=== PATIENT | female | born 1955 | race Caucasian/White ===

== ENCOUNTER 2018-10-18 08:39 | Emergency (ER) | payer MEDICARE ==
[2018-10-18] MEDS ORDERED: Mag-Al 1200 mg/1200 mg/30 ML UDCUP ONE (09:09)
[2018-10-18] MEDS ORDERED: Pantoprazole 40 MG VIAL ONE (09:09)
[2018-10-18] MEDS ORDERED: Lidocaine Viscous Sol 2% 15 ml UD Cup ONE (09:09)
[2018-10-18 09:31] LABS: #Basophils 0.1 thou/uL (0.0-0.2); #Eosinphils 0.2 thou/uL (0.0-0.7); #Lymphocytes 2.3 thou/uL (1.20-3.40); #Monocytes 0.9 thou/uL (0.11-0.59); #Neutrophils 6.6 thou/uL (1.40-6.50); %Basophils 0.8 % (0.0-1.0); %Lymphocytes 22.5 % (21.0-51.0); %Monocytes 9.2 % (0.0-10.0); %Neutrophils 65.5 % (42.0-75.0); Hemoglobin 13.2 g/dL (12.0-16.0); Mean Corpuscular HGB CONC 33.4 g/dL (32.0-36.0); Mean Corpuscular Hemoglobin 30.8 pg (27.0-31.0); Mean Corpuscular Volume 92.2 fL (78.0-98.0); Mean Platelet Volume 7.4 fL (7.4-10.4); Platelet Count 468 thou/uL (130-400); RBC Distribution Width 11.5 % (11.5-14.5)
[2018-10-18 09:45] LABS: PTT 39.8 SEC (22.9-36.1); Prothrombin Time 13.7 SEC (12.0-14.7)
[2018-10-18] MEDS ORDERED: Fentanyl 100 MCG/2 ML VIAL ONE (09:48)
[2018-10-18 09:57] LABS: ALT (SGPT) 21 U/L (8-55); AST (SGOT) 19 U/L (5-34); Albumin 4.4 g/dL (3.4-4.8); Alkaline Phosphatase 70 U/L (40-150); Anion Gap 14 mmol/L (10-20); BUN (Urea Nitrogen) 15 mg/dL (9.8-20.1); Bilirubin, Total 0.7 mg/dL (0.2-1.2); Calc. Creatinine Clearance 0 mL/min (70-130); Calcium 10.2 mg/dL (7.8-10.44); Carbon Dioxide 26 mmol/L (23-31); Chloride 103 mmol/L (98-107); Estimated GFR-MDRD 73; Globulin 3.7 g/dL (2.4-3.5); Glucose 95 mg/dL (80-115); Lipase 17 U/L (8-78); Potassium 4.1 mmol/L (3.5-5.1); Protein, Total 8.1 g/dL (6.0-8.3); Sodium 139 mmol/L (136-145)
--- NOTE | 2018-10-18 10:03 | RAD ---
PORTABLE AP CHEST XRAY: DATE: 10/18/2018. HISTORY: Chest pain, abdominal pain. COMPARISON: None available. FINDINGS: Cardiac silhouette and pulmonary vasculature are within normal limits. There is minimal atelectasis versus scarring at the left lung base. Lungs are otherwise clear. The osseous structures appear int act. IMPRESSION: No acute cardiopulmonary process. POS: [id number]
--- NOTE | 2018-10-18 10:10 | ULT ---
GALLBLADDER ULTRASOUND: Date: 10/18/18 HISTORY: Abdominal pain. FINDINGS: Liver demonstrates homogeneous echotexture without focal mass or intrahepatic ductal dilatation. No g allstones, gallbladder wall thickening or pericholecystic fluid is seen. The common duct measures 3.0 mm in diameter. Right kidney and visualized portions of the pancreas are normal. No free fluid is se en in Morison's pouch. IMPRESSION: No evidence of cholelithiasis. POS: OFF
[2018-10-18] MEDS ORDERED: Ketorolac Tromethamine 30 MG/ML VIAL ONE (10:37)
== END 2018-10-18 10:48 | disposition home or self-care (01) ==
LOC: ERS 08:39
DX: R10.11 Right upper quadrant pain (principal); K21.9 Gastro-esophageal reflux disease without esophagitis
CPT/HCPCS: 71045; 76705; 80053; 83690; 84484; 85025; 85610; 85730; 93005; 96361; 96374; 96375; C9113; J1885; J3010